=== PATIENT | male | born 1935 | race Caucasian/White ===

== ENCOUNTER 2016-03-25 11:07 | Day surgery (SDC) | payer MEDICARE ==
[2016-03-25] VITALS (9 sets, daily range): BP systolic 137–162; BP diastolic 63–79; PULSE 51–76; TEMP 98.1–98.8
[~2016-03-25] VITALS: Ht 177.8 cm; Wt 113.9 kg
[~2016-03-25 11:07] MED LIST: AMBIEN 5MG TABLE5 MG PO; AMLOPIDINE PO; ASPIRIN E.C. 8181 MG PO; ASTELIN NASAL S34 ML NS; ATIVAN 0.50.5 MG/TAB PO; CARDI-OMEGA1000 MG PO; CELEBREX50 MG; CHERATUSSIN AC480 ML PO; CIALIS5 MG PO; COMBIVENT INH14.7 GM IH; ERY-TAB250 M1 PO; FLAX OIL1000 MG PO; FLOMAX 0.40.4 MG/CAP PO; GLUCOPHAGE500 MG/TAB PO; HYZAAR 50-12.1 UDTAB PO; LEVAQUIN 5500 MG/TAB PO; LISINOPRIL/HCTZ1 TAB PO; LISINOPRIL10 MG PO; LORTAB 5/500 501 TAB PO; MELAT3MGTAB PO; MOBIC 7.5MG7.5 MG PO; MUCINEX 60600 MG/TA1 PO; MULTIPLE VITAMI1 CAP PO; NATURAL POTASS595 MG PO; NORCO 325 MG-51 TAB PO; NORVASC 10MG10 MG PO; OMEGA-31000 MG PO; PERCOCET 325 MG1 TA2 PO; POTASSIMIN75 MG PO; PREDNISONE20 MG PO; PRILOSEC 20MG20 MG PO; PROVENTIL0.09 MG/A1 IH; ROCEPHIN1 GM IV; SINGULAIR 110 MG/TAB PO; SOLU-MEDRO40 MG/VIA1 IV; TESSALON PERLE200 MG PO; TYLENOL 325MG325 MG PO; VITAMINC1000TA PO; ZITHROMAX 250M250 MG PO; ZITHROMAX Z PA250 MG PO; [UNRECOGNIZED DRUG - OTHER]
[2016-03-26 05:51] VITALS: BP 115/47; PULSE 72; TEMP 98.2
[2016-03-26 07:07] LABS: MEAN CELL VOLUME 96 fl (80.0-100.0); MEAN CORPUSCULAR HGB CONC 33 g/dl (33.0-37.0); MEAN PLATELET VOLUME 10.1 fl (7.4-10.4); PLATELET COUNT 156 K/mm3 (130-400); RED BLOOD COUNT 3.65 M/mm3 (4.20-5.60); REDCELL DISTRIBUTION WIDTH-CV 12.3 % (11.5-14.5)
[2016-03-26 07:09] LABS: HEMATOCRIT 35.2 % (42.0-52.0); HEMOGLOBIN 11.7 g/dl (13.5-18.0); MEAN CORPUSCULAR HEMOGLOBIN 32 pg (27.0-31.0)
[2016-03-26 10:42] VITALS: BP 141/69; PULSE 81; TEMP 99.2
== END 2016-03-26 13:41 | disposition home or self-care (01) ==
LOC: SDCO 11:07 → SURG 14:20 → SDCO 03-26 13:41
PROVIDERS: Urology
DX: N40.1 Benign prostatic hyperplasia with lower urinary tract symptoms (principal); R39.12 Poor urinary stream; R35.1 Nocturia; I10 Essential (primary) hypertension
CPT/HCPCS: OP; J0690; J2250; J2704; J2765; J7030; J7120

== ENCOUNTER 2016-12-30 08:57 | Emergency (ER) | payer MEDICARE ==
[~2016-12-30] VITALS: Ht 177.8 cm; Wt 113.6 kg
[2016-12-30 09:00] VITALS: BP 150/70; TEMP 98.1
[2016-12-30 09:40] VITALS: PULSE 64
== END 2016-12-30 09:40 | disposition home or self-care (01) ==
LOC: COL.ER 08:57
DX: M25.561 Pain in right knee (principal); I10 Essential (primary) hypertension; Z79.82 Long term (current) use of aspirin; Z79.84 Long term (current) use of oral hypoglycemic drugs; X58.XXXA Exposure to other specified factors, initial encounter

== ENCOUNTER 2018-08-29 19:19 | Emergency (ER) | payer MEDICARE ==
[~2018-08-29] VITALS: Ht 180.3 cm; Wt 113.6 kg
[2018-08-29 19:24] VITALS: BP 152/82; TEMP 98
[2018-08-29 20:00] VITALS: PULSE 85
== END 2018-08-29 20:00 | disposition home or self-care (01) ==
LOC: COL.ER 19:19
DX: S51.812A Laceration without foreign body of left forearm, initial encounter (principal); Z79.82 Long term (current) use of aspirin; Z23 Encounter for immunization; W26.8XXA Contact with other sharp object(s), not elsewhere classified, initial encounter; Y92.009 Unspecified place in unspecified non-institutional (private) residence as the place of occurrence of the external cause

== ENCOUNTER → 2019-09-14 | Outpatient (CLI) | payer MEDICARE | LOC: COL.VAS 13:46 | DX: R06.02 Shortness of breath (principal) ==

== ENCOUNTER 2019-11-26 10:46 | Emergency (ER) | payer MEDICARE ==
[~2019-11-26] VITALS: Ht 177.8 cm; Wt 102.3 kg
[2019-11-26 10:54] VITALS: TEMP 98
[2019-11-26] MEDS ORDERED: NORCO 325 MG-51 TAB PO (12:13)
[2019-11-26 12:22] VITALS: BP 142/72; PULSE 69
== END 2019-11-26 12:25 | disposition home or self-care (01) ==
LOC: COL.ER 10:46
DX: S42.001A Fracture of unspecified part of right clavicle, initial encounter for closed fracture (principal); S51.811A Laceration without foreign body of right forearm, initial encounter; E11.9 Type 2 diabetes mellitus without complications; I10 Essential (primary) hypertension; Z23 Encounter for immunization; Z79.84 Long term (current) use of oral hypoglycemic drugs; Z79.82 Long term (current) use of aspirin; W01.0XXA Fall on same level from slipping, tripping and stumbling without subsequent striking against object, initial encounter